=== PATIENT | male | born 1960 | race Hispanic/Latino ===

== ENCOUNTER 2019-12-09 11:12 | Outpatient (CLI) | payer OTHER ==
--- NOTE | 2019-12-09 12:12 | RAD ---
ABDOMEN 2 VIEWS: Date: 12/09/2019 INDICATION: Constipation. COMPARISON: None. FINDINGS: Bowel gas pattern is unobstructed. No significant amount of residual stool is present. No suspicious calcifications are evident. No acute osseous abnormalities noted. No free air is evident. IMPRESSION: No acute abnormality. POS: [facility]
== END 2019-12-09 11:13 | disposition home or self-care (01) ==
LOC: RAD-FRANK 11:12
PROVIDERS: ATTEND Nurse Practitioner Family
DX: K59.00 Constipation, unspecified (principal)
CPT/HCPCS: 74019